=== PATIENT | female | born 1960 | race Caucasian/White ===

== ENCOUNTER 2020-03-30 13:03 | Outpatient (CLI) | payer OTHER ==
--- NOTE | 2020-03-30 14:02 | BD ---
DEXA BONE DENSITOMETRY: (Dual energy x-ray absorptiometry) DATE: 03/30/2020 HISTORY: 59-year old white female for age-related, post-menopausal, osteoporosis screening. Weight: 120 lbs Height: 64 in. Age of menopause: 49 COMPARISON: None available. FINDINGS: The bone mineral density (BMD) is given in grams per square centimeter (g/cm2): LUMBAR SPINE: BMD (g/cm^2) T score Z score L1: 1.057 0.6 1.7 L2: 1.091 0.6 1.8 L3: 1.064 -0.2 1.1 L4: 1.032 -0.3 1.0 Total: 1.060 0.1 1.3 HIP: BMD (g/cm^2) T score Z score Femoral neck: 0.710 -1.3 -0.1 Total: 0.948 0.1 0.9 FRAX WHO fracture risk assessment tool: 10 year fracture risk* Major osteoporotic fracture: 6.0 % Hip fracture: 0.4 % Reported risk factors: US (), neck BMD = 0.710 (g/cm^2), BMI = 20.6. *Fracture probability is calculated for an untreated patient. Fracture probability may be lower if th e patient has received treatment. IMPRESSION: 1.) The mean bone mineral density of the lumbar spine is normal. Fracture risk is not increased. 2) The bone mineral density of the femoral neck is osteopenic. Fracture risk is increased.
--- NOTE | 2020-03-30 14:06 | MMO ---
Bilateral MAMMO Bilat Screen [facility]LENE. CLINICAL HISTORY: Patient is 59 years old and is seen for screening. The patient has the following family history of breast cancer: mother, at age 70 and maternal grandmother, at age 80. The patient has no personal history of cancer. VIEWS: The views performed were: bilateral craniocaudal with tomosynthesis; bilateral mediolateral oblique with tomosynthesis; and bilateral exaggerated craniocaudal. FILMS COMPARED: The present examination has been compared to prior imaging studies performed at [facility] on 04/03/2015 and 05/16/2015, and at [facility] on 10/29/2012 and 11/05/2012. This study has been interpreted with the assistance of computer-aided detection. MAMMOGRAM FINDINGS: The breasts are heterogeneously dense, which could obscure a lesion on mammography. Finding 1: There is an area of architectural distortion seen in the upper-outer region of the right breast. Finding 2: There are stable benign appearing calcifications seen in both breasts. Finding 3: There are multiple round masses of varying size with circumscribed margins seen in both breasts. IMPRESSION: FINDING 1: AREA OF ARCHITECTURAL DISTORTION IN THE RIGHT BREAST REQUIRES ADDITIONAL EVALUATION. SPOT COMPRESSION IS RECOMMENDED. AN ULTRASOUND EXAM IS RECOMMENDED IF NEEDED. FINDING 2: STABLE CALCIFICATIONS IN BOTH BREASTS ARE BENIGN. FINDING 3: MASSES IN BOTH BREASTS ARE BENIGN. THE RESULTS OF THIS EXAM WERE SENT TO THE PATIENT. ACR BI-RADS Category 0 - Incomplete: Need additional imaging evaluation. [facility] will notify the patient of the need for additional imaging services. MAMMOGRAPHY NOTE: 1. A negative mammogram report should not delay a biopsy if a dominant of clinically suspicious mass is present. 2. Approximately 10% to 15% of breast cancers are not detected by mammography. 3. Adenosis and dense breasts may obscure an underlying neoplasm. Reported by: JM OKEEFE MD Electonically Signed: [id number]
== END 2020-03-30 13:04 | disposition home or self-care (01) ==
LOC: BICMAMMO 13:03
PROVIDERS: ATTEND Obstetrics & Gynecology
DX: Z12.31 Encounter for screening mammogram for malignant neoplasm of breast (principal); Z13.820 Encounter for screening for osteoporosis; M81.0 Age-related osteoporosis without current pathological fracture; M85.859 Other specified disorders of bone density and structure, unspecified thigh; R92.1 Mammographic calcification found on diagnostic imaging of breast; N63.20 Unspecified lump in the left breast, unspecified quadrant; N63.10 Unspecified lump in the right breast, unspecified quadrant; Z79.890 Hormone replacement therapy
CPT/HCPCS: 77063; 77067; 77080

== ENCOUNTER 2020-04-25 08:57 | Outpatient (CLI) | payer OTHER ==
--- NOTE | 2020-04-25 11:30 | MMO ---
Right Breast MAMMO Unilat Diag DDI RT+ARLENE. CLINICAL HISTORY: Patient is 59 years old and is seen for diagnostic exam. The patient has the following family history of breast cancer: mother, at age 70 and maternal grandmother, at age 80. The patient has no personal history of cancer. VIEWS: The views performed were: right craniocaudal spot compression with tomosynthesis; right mediolateral oblique spot compression with tomosynthesis; and right mediolateral with tomosynthesis. FILMS COMPARED: The present examination has been compared to prior imaging studies performed at [facility] on 04/03/2015, 05/16/2015, 03/30/2020 and 04/25/2020. This study has been interpreted with the assistance of computer-aided detection. MAMMOGRAM FINDINGS: The breast is heterogeneously dense, which could obscure a lesion on mammography. Finding 1: There is a new area of architectural distortion with spiculated margins seen in the anterior region of the right breast at 12 o'clock. Finding 2: There is a new area of architectural distortion with spiculated margins seen in the posterior upper-outer region of the right breast. D/w patient in person on 04/25/2020 D/W Dr. Tse's nurse Daysi Wade LVN over the phone at 11:13 AM on 04/25/2020. IMPRESSION: FINDING 1: NEW AREA OF ARCHITECTURAL DISTORTION IN THE ANTERIOR REGION OF THE RIGHT BREAST AT 12 O'CLOCK IS HIGHLY SUGGESTIVE OF MALIGNANCY. AN ULTRASOUND-GUIDED BREAST BIOPSY IS RECOMMENDED. FINDING 2: NEW AREA OF ARCHITECTURAL DISTORTION IN THE POSTERIOR UPPER-OUTER REGION OF THE RIGHT BREAST IS HIGHLY SUGGESTIVE OF MALIGNANCY. AN ULTRASOUND-GUIDED BREAST BIOPSY IS RECOMMENDED. THE RESULTS OF THIS EXAM WERE SENT TO THE PATIENT. ACR BI-RADS Category 5 - Highly suggestive of malignancy - appropriate action should be taken MAMMOGRAPHY NOTE: 1. A negative mammogram report should not delay a biopsy if a dominant of clinically suspicious mass is present. 2. Approximately 10% to 15% of breast cancers are not detected by mammography. 3. Adenosis and dense breasts may obscure an underlying neoplasm. Reported by: ERIKA CARLOS MD Electonically Signed: [id number]
--- NOTE | 2020-04-25 14:20 | ULT ---
ULTRASOUND RIGHT BREAST LIMITED: 04/25/20 HISTORY: 59-year-old female with two new spiculated lesions in the right breast on recent mammogram. TECHNIQUE: Focused ultrasound of right upper outer quadrant posteriorly, and right anterior upper breast. FINDINGS: Dr. Red discussed the two findings highly suspicious for breast cancer, and recommendation for ultras ound guided biopsy, with the patient immediately after the ultrasound, then by telephone with Dr. Edna cruz's nurse, Daysi Wade LVN, at 11:13 a.m. on 04/25/20. At the 11 o'clock position, 4 cm from the nipple in the posterior upper outer quadrant, there is a hy poechoic, shadowing, taller than wide, moderate seized spiculated mass with architectural distortion. It is difficult to measure because of its very irregular shape and ill-defined margins, but the hypo echoic component is approximately 2 x 1.5 cm. In the anterior upper breast, at the 12 o'clock position, 1 cm from the nipple, there is another spic ulated mass with similar characteristics as the mass described above. Both of these correspond to mammographically suspicious lesions. IMPRESSION: 1. BIRADS 5: Highly Suggestive of Malignancy - Appropriate Action Should Be Taken Requires biopsy or surgical treatment 2. Two spiculated masses with architectural distortion in the right breast, one at the posterior upper outer quadrant at 11 o'clock, and the other in the anterior upper breast at 12 o'clock. 3. Recommend ultrasound guided right breast biopsy x2. POS: OFF
== END 2020-04-25 08:58 | disposition home or self-care (01) ==
LOC: BICMAMMO 08:57
PROVIDERS: ATTEND Obstetrics & Gynecology
DX: N64.89 Other specified disorders of breast (principal)
CPT/HCPCS: G0279

== ENCOUNTER 2020-05-04 14:13 | Outpatient (CLI) | payer OTHER ==
--- NOTE | 2020-05-07 10:16 | MRI ---
MRI OF THE BILATERAL BREASTS WITHOUT AND WITH CONTRAST: COMPARISON: Mammogram and ultrasound 04/25/2020. Mammogram of 03/30/2020 and 02/24/2007. HISTORY: Abnormality seen on mammogram and ultrasound in the upper aspect of the right breast. TECHNIQUE: Multiplanar, multisequence MR images were obtained of the bilateral breasts without and with IV contr ast. Contrast-enhancement curves and 3D MIP reformats were generated on [employer] work station. FINDINGS: There is heterogeneously dense breast parenchyma. Moderate background parenchymal enhancement is see n in both breasts. There are multiple well-circumscribed nonenhancing foci of high T2 signal in both breasts measuring up to 1.7 cm in size which represent cysts. In the upper aspect of the right breast, there is an area of architectural distortion which demonstra ashlee abnormal plateau-type enhancement. This measures 1.5 cm in greatest dimension and corresponds to the mammographic abnormality. This is at approximately the 12 o'clock position. This area was scan mitali slightly earlier and more intense than the background parenchyma in the right breast. Only one a sammi of abnormal enhancement or architectural distortion is seen in the right breast. No suspicious enhancement or abnormal mass is seen in the left breast. No axillary adenopathy is seen. No internal mammary lymph nodes are identified. The visualized anterior liver and osseous structures are unremarkable. IMPRESSION: There is an abnormal area of architectural distortion which demonstrates enhancement of the right baltazar ast. This corresponds to the mammographic abnormality and may have corresponding to the ultrasound a bnormality on 04/25/2020 that could not be reproduced at the time of biopsy. BIRADS category 4 - susp icious abnormality. A biopsy of this area should be performed. If this can be reproduced with ultra sound, then an ultrasound-guided biopsy would be recommended. However, if this lesion cannot be repr oduced with mammography, then either a stereotactic biopsy or MRI-guided biopsy of this area is recom mended.
== END 2020-05-04 14:14 | disposition home or self-care (01) ==
LOC: BICMRI 14:13
PROVIDERS: ATTEND Obstetrics & Gynecology
DX: R92.8 Other abnormal and inconclusive findings on diagnostic imaging of breast (principal)
CPT/HCPCS: A9577; C8908

== ENCOUNTER → 2020-05-14 | Day surgery (SDC) | payer OTHER | LOC: MAMMO 07:19 | PROVIDERS: ATTEND Obstetrics & Gynecology | DX: Z53.9 Procedure and treatment not carried out, unspecified reason (principal) | CPT/HCPCS: 19081 ==

== ENCOUNTER 2020-05-25 09:55 | Outpatient (CLI) | payer OTHER ==
--- NOTE | 2020-05-25 11:10 | MMO ---
FILMS COMPARED: The present examination has been compared to prior imaging studies performed at [facility] on 03/30/2020, 04/25/2020 and 05/04/2020. MAMMOGRAM FINDINGS: The breast is heterogeneously dense, which could obscure a lesion on mammography. There are two new biopsy clips seen in the right breast. These are at the 12 oclock and upper outer aspects of the right breast in the regions of mammographic distortion. IMPRESSION: NEW BIOPSY CLIPS IN THE RIGHT BREAST ARE CONFIRMED UTILIZING POST PROCEDURE MAMMOGRAM. Reported by: CATHIE FAIR MD Electonically Signed: [id number]
--- NOTE | 2020-05-25 11:33 | ULT ---
US Breast Bx US Guide Add History: Right breast masses. Comparison: Breast MRI May 14, 2020. Right breast ultrasound April 25, 2020. Findings: Patient was brought to the ultrasound suite. All questions were answered. Informed consent obtained. Timeout performed. Patient's right breast was prepped and draped in normal sterile fashion. After adequate local anesthe louis with lidocaine, a total of 4 14-gauge cores of the right breast mass 12:00 1 cm from the nipple was performed. "R" clip was placed. Next a total of 4 cores from the 11:00 mass 4 centimeter from the nipple was performed. "S" clip was placed. Patient tolerated procedure well without complication. Post procedure mammogram demonstrated good position of the clips in both foci of of asymmetry which w ere sampled. Impression: Technically successful ultrasound-guided biopsy x2 with satisfactory post clip location i ndicating adequate tissue sampling in the correct locations.
== END 2020-05-25 09:56 | disposition home or self-care (01) ==
LOC: BICULT 09:55
PROVIDERS: ATTEND Surgery
DX: C50.811 Malignant neoplasm of overlapping sites of right female breast (principal)
CPT/HCPCS: 19083; 19084; 88305; 88341; 88342

== ENCOUNTER 2020-06-22 17:39 | Outpatient (CLI) | payer OTHER ==
[2020-06-22 18:40] LABS: #Basophils 0.1 10x3/uL (0.0-0.2); #Eosinphils 0.1 10x3/uL (0.0-0.5); #Monocytes 0.6 10x3/uL (0.0-1.1); #Neutrophils 3.6 10x3/uL (1.5-8.4); %Basophils 1.3 % (0.0-2.0); %Eosinophils 0.7 % (0.0-6.0); %Lymphocytes 36.2 % (18.0-47.0); %Monocytes 8.5 % (0.0-10.0); %Neutrophils 53.2 % (40.0-75.0); Mean Corpuscular Volume 88.2 fl (80.0-100.0); Mean Platelet Volume 12.1 fl (7.4-10.4); Platelet Count 246 10x3/uL (130-400); Red Blood Cell (RBC) Count 4.33 10x6/uL (3.90-5.20); White Blood Cell (WBC) Count 6.8 10x3/uL (4.5-11.0)
[2020-06-22 18:56] LABS: Anion Gap 16 mmol/L (10-20); BUN (Urea Nitrogen) 17 mg/dL (9.8-20.1); Calc. Creatinine Clearance 0 mL/min (70-130); Calcium 9.6 mg/dL (7.8-10.44); Carbon Dioxide 27 mmol/L (22-29); Chloride 98 mmol/L (98-107); Estimated GFR-MDRD 71; Glucose 74 mg/dL (70-105); Potassium 3.9 mmol/L (3.5-5.1); Sodium 137 mmol/L (136-145)
[2020-06-23 16:11] LABS: SARS-CoV-2 MS2 Positive; SARS-CoV-2 N Gene Negative; SARS-CoV-2 S Gene Negative; SARS-CoV-2 by NAA Not Detected (NotDetected); SARS-CoV-2 orf1ab Negative
== END 2020-06-22 17:40 | disposition home or self-care (01) ==
LOC: LABBT 17:39
PROVIDERS: ATTEND Surgery
DX: Z01.812 Encounter for preprocedural laboratory examination (principal); Z20.828 Contact with and (suspected) exposure to other viral communicable diseases; D05.90 Unspecified type of carcinoma in situ of unspecified breast
CPT/HCPCS: 80048; 85025; 87635; U0003

== ENCOUNTER 2020-06-27 11:01 | Observation (INO) | payer OTHER ==
[~2020-06-27 11:01] MED LIST: Dexamethasone 20 MG/5 ML VIAL ONE; Ketorolac Tromethamine 30 MG/ML VIAL ONE; Lidocaine 1% PF 5 ML VIAL ONE; Ondansetron PF 4 MG/2 ML Vial ONE; PHENYLEPHRINE-NS 100 MCG/ML 10 ML SYRINGE ONE; PROPOFOL 200 MG/20 ML VIAL ONE; ePHEDrine 50 MG/ML VIAL ONE
[2020-06-27] MEDS ORDERED: Levofloxacin 500 mg/D5W 100 ml Premix Bag ONE (11:56)
[2020-06-27] MEDS ORDERED: Fentanyl 100 MCG/2 ML VIAL ONE ×2 (12:31→15:38)
[2020-06-27] MEDS ORDERED: Ondansetron HCl/PF 4 MG/2 ML Vial IVP PRN (15:22)
[2020-06-27] MEDS ORDERED: Promethazine HCl 25 MG/ML VIAL SLOW IVP PRN (15:22)
[2020-06-27] MEDS ORDERED: Promethazine HCl 25 MG/ML VIAL IM PRN ×2 (15:22→17:00)
[2020-06-27] MEDS ORDERED: D5 1/2 NS w/20 mEq KCL 1,000 ML ONE (15:58)
[2020-06-27] MEDS ORDERED: Dextrose 5% in Water 1,000 ML IV PRN (17:00)
[2020-06-27] MEDS ORDERED: hydrALAZINE 20 MG/ML VIAL SLOW IVP PRN (17:00)
[2020-06-27] MEDS ORDERED: HYDROcodone/Acetaminophen 7.5/325 mg Tablet PO PRN ×2 (17:00)
[2020-06-27] MEDS ORDERED: Dextrose 50% Abboject 50 ML SYRINGE SLOW IVP PRN (17:00)
[2020-06-27] MEDS ORDERED: Morphine 2 MG/ML VIAL SLOW IVP PRN (17:00)
[2020-06-27] MEDS ORDERED: Ondansetron PF 4 MG/2 ML Vial IVP PRN (17:00)
[2020-06-27] MEDS ORDERED: Morphine 4 MG/ML VIAL SLOW IVP PRN (17:00)
[2020-06-27] MEDS: D5 1/2 NS w/20 mEq KCL 1,000 ML IV SCH ×2 (17:08→22:20)
[2020-06-27] MEDS: Famotidine 20 MG TAB PO SCH (20:01)
[2020-06-27] MEDS: Lactinex Tablet PO SCH (20:01)
[2020-06-27] MEDS ORDERED: LATANOPROSTENE BUNOD FS SCH (21:00)
[2020-06-27] MEDS ORDERED: Montelukast Sodium 10 mg Tablet PO SCH (21:00)
--- NOTE | 2020-06-27 23:02 | OP ---
DATE OF PROCEDURE: 06/27/2020 PREOPERATIVE DIAGNOSIS: Right breast cancer (DCIS, low grade, 2 areas). POSTOPERATIVE DIAGNOSIS: Right breast cancer (DCIS, low grade, 2 areas). PROCEDURE PERFORMED: Bilateral simple mastectomy (nipple and skin sparing). ANESTHESIA: General. ESTIMATED BLOOD LOSS: Minimal. COMPLICATIONS: None. BRIEF HISTORY: The patient is a 59-year-old female with a history of abnormality in the right breast x2. She underwent biopsies, both revealed DCIS that was low-grade. She was offered lumpectomy in that right breast, however, given her small amount to moderate-sized breast, this was thought to likely result severe deformity. She thus elected for mastectomy. TECHNIQUE: The patient was taken to the operating room and laid supine on the operating room table. After general anesthetic, the bilateral chest, neck, axilla were all prepped and draped in a sterile fashion. Inframammary incision was made. Bilateral flaps were raised posterior to the breast, anterior to pectoralis muscle all the way from inframammary crease to sternum medially on both sides to latissimus dorsi laterally on both sides and towards the clavicle superiorly. The superficial flaps were then raised dissecting breast tissue down from the subcutaneous fat along the same landmarks. The bilateral breasts were thus removed. Each side, a blue Prolene suture was placed at the nipple and a black silk suture was used to marked 2 short superior, 1 long lateral. Specimens were sent separate to [facility] for final diagnosis. Meticulous hemostasis was obtained in the mastectomy cavity bilateral. They were irrigated using sterile solution until returns were clear. 19 round drain brought out through separate stab incisions laterally and left in the mastectomy cavities. This was sewn in using silk suture. Subcutaneous tissues were closed using 3-0 Vicryl. Skin was closed using running 4-0 Monocryl and Dermabond. Tegaderms were used over the bilateral chest wall incisions and breast skin. The patient was then wrapped using 6-inch Efrain wrap. She was sent to Recovery in stable condition. All instrument counts, needle counts, lap counts were correct. Job ID: [id number]
[2020-06-28] MEDS: D5 1/2 NS w/20 mEq KCL 1,000 ML IV SCH (06:48)
--- NOTE | 2020-06-28 08:31 | DIS ---
DATE OF ADMISSION: 06/27/2020 DATE OF DISCHARGE: 06/28/2020 ADMITTING DIAGNOSIS: Ductal carcinoma in situ, right breast x2. DISCHARGE DIAGNOSIS: Ductal carcinoma in situ, right breast x2. PROCEDURE: Bilateral simple mastectomy. SURGEON: Barber Jeffries MD COMPLICATIONS: Without complication. CONDITION ON DISCHARGE: Improved. HOSPITAL COURSE: On postop day 1, the patient's pain is well controlled. She has been instructed on drain care. She is wrapped in an Efrain wrap. She is going to be discharged home. She will follow up with me on Thursday for drain removal. Prescriptions for hydrocodone and Zofran sent to her pharmacy. She will follow up on Thursday. Job ID: [id number]
[2020-06-28] MEDS: Lactinex Tablet PO SCH (08:38)
[2020-06-28] MEDS: Famotidine 20 MG TAB PO SCH (08:38)
[2020-06-28 08:50] VITALS: TEMP 98.5
[2020-06-28] MEDS ORDERED: FLU VACC QS2020-21(6MOS UP)/PF 60 MCG/0.5 ML SYRINGE IM ONE (09:00)
[2020-06-28 11:53] VITALS: BP 98/60
== END 2020-06-28 11:54 | disposition home or self-care (01) ==
LOC: SDC 11:01 → SJJU 15:22
PROVIDERS: ADMIT Surgery; ATTEND Surgery
PROC: 0HBV0ZZ Excision of Bilateral Breast, Open Approach (ICD-10-PCS; principal; 2020-06-27)
DX: D05.11 Intraductal carcinoma in situ of right breast (principal); N60.21 Fibroadenosis of right breast; N60.22 Fibroadenosis of left breast; N60.92 Unspecified benign mammary dysplasia of left breast; D24.2 Benign neoplasm of left breast; Z79.899 Other long term (current) drug therapy; Z88.0 Allergy status to penicillin; Z91.018 Allergy to other foods
CPT/HCPCS: 88307; G0378; J1100; J1885; J1956; J2405; J2704; J3010; J3480; J3490

== ENCOUNTER 2020-08-22 06:36 | Outpatient (CLI) | payer OTHER ==
[2020-08-23 03:24] LABS: SARS-CoV-2 PCR by NAA Not Detected (NotDetected)
== END 2020-08-22 06:37 | disposition home or self-care (01) ==
LOC: LABBT 06:36
PROVIDERS: ATTEND Plastic Surgery
DX: Z01.812 Encounter for preprocedural laboratory examination (principal); Z20.822 Contact with and (suspected) exposure to COVID-19; C50.911 Malignant neoplasm of unspecified site of right female breast
CPT/HCPCS: 87635; U0003; U0005

== ENCOUNTER 2020-08-27 05:59 | Day surgery (SDC) | payer OTHER ==
[2020-08-23 11:18] VITALS: BMI 20.5
[2020-08-27] MEDS ORDERED: Sodium Chloride 0.9% 20 ML ONE (06:34)
[2020-08-27] MEDS ORDERED: Gentamicin 80 MG/2 ML VIAL ONE (06:34)
[2020-08-27] MEDS ORDERED: Bupivacaine 0.25% HCL 30 ML VIAL ONE (06:34)
[2020-08-27] MEDS ORDERED: EPINEPHrine 1 MG/ML AMP ONE (06:34)
[2020-08-27] MEDS ORDERED: Levofloxacin 500 mg/D5W 100 ml Premix Bag ONE (06:37)
[2020-08-27] MEDS ORDERED: Heparin 5,000 UNITS/ML VIAL ONE (06:38)
[2020-08-27] MEDS ORDERED: Clindamycin/D5W 900 mg/50 ml Premix Bag ONE (06:38)
[2020-08-27] MEDS ORDERED: Lidocaine 2% Jelly 5 ML TUBE ONE (06:38)
[2020-08-27] MEDS ORDERED: Fentanyl 100 MCG/2 ML VIAL ONE (06:38)
[2020-08-27] MEDS ORDERED: Promethazine HCl 25 MG/ML VIAL ONE (07:14)
[2020-08-27] MEDS ORDERED: PROPOFOL 200 MG/20 ML VIAL ONE (09:21)
[2020-08-27] MEDS ORDERED: Ondansetron PF 4 MG/2 ML Vial ONE (09:21)
[2020-08-27] MEDS ORDERED: ePHEDrine 50 MG/ML VIAL ONE (09:21)
[2020-08-27] MEDS ORDERED: Dexamethasone 20 MG/5 ML VIAL ONE (09:21)
[2020-08-27] MEDS ORDERED: PHENYLEPHRINE-NS 100 MCG/ML 10 ML SYRINGE ONE (09:21)
[2020-08-27] MEDS ORDERED: Lidocaine 1% PF 5 ML VIAL ONE (09:21)
[2020-08-27] MEDS ORDERED: Ketorolac Tromethamine 30 MG/ML VIAL ONE (09:21)
== END 2020-08-27 14:20 | disposition home or self-care (01) ==
LOC: SDC 05:59
PROVIDERS: ATTEND Plastic Surgery
PROC: 0HHV0NZ Insertion of Tissue Expander into Bilateral Breast, Open Approach (ICD-10-PCS; principal; 2020-08-27)
DX: C50.919 Malignant neoplasm of unspecified site of unspecified female breast (principal); J44.9 Chronic obstructive pulmonary disease, unspecified; Z79.82 Long term (current) use of aspirin; Z79.899 Other long term (current) drug therapy; Z88.0 Allergy status to penicillin; Z91.018 Allergy to other foods
CPT/HCPCS: C1713; J0171; J1100; J1580; J1644; J1885; J1956; J2405; J2550; J2704; J3010; J3370; J3490; S0020

== ENCOUNTER 2020-09-06 11:46 | Day surgery (SDC) | payer OTHER ==
[2020-09-06] MEDS ORDERED: Fentanyl 100 MCG/2 ML VIAL ONE ×4 (11:59→15:21)
[2020-09-06] MEDS ORDERED: Ondansetron PF 4 MG/2 ML Vial ONE (12:00)
--- NOTE | 2020-09-06 12:28 | RAD ---
RADIOGRAPH CHEST 1 VIEW: DATE: 09/06/2020 HISTORY: 59-year-old female status post syncope. Concern for aspiration. FINDINGS: There are no airspace densities, pulmonary edema, pneumothorax, or cardiomegaly. The lateral costophr enic angles are sharp. IMPRESSION: No acute cardiopulmonary findings.
[2020-09-06 12:44] LABS: #Monocytes 1.1 thou/uL (0.11-0.59); %Basophils 0.3 % (0.0-1.0); %Eosinophils 0.1 % (0.0-10.0); %Monocytes 7.8 % (0.0-10.0); %Neutrophils 84.9 % (42.0-75.0); Hemoglobin 9.9 g/dL (12.0-16.0); Mean Corpuscular HGB CONC 34.3 g/dL (32.0-36.0); Mean Corpuscular Hemoglobin 31.5 pg (27.0-31.0); Mean Platelet Volume 8.2 fL (7.4-10.4); Platelet Count 212 thou/uL (130-400); RBC Distribution Width 11.4 % (11.5-14.5); Red Blood Cell (RBC) Count 3.13 mill/uL (4.20-5.40); White Blood Cell (WBC) Count 14.1 thou/uL (4.8-10.8)
[2020-09-06 12:51] LABS: INR-International Normal Ratio 0.9; PTT 30.4 sec (22.9-36.1); Prothrombin Time 11.8 sec (12.0-14.7)
[2020-09-06 13:05] LABS: ALT (SGPT) 61 U/L (8-55); AST (SGOT) 38 U/L (5-34); Albumin 3.8 g/dL (3.5-5.0); Alkaline Phosphatase 72 U/L (40-110); Anion Gap 16 mmol/L (10-20); BUN (Urea Nitrogen) 10 mg/dL (9.8-20.1); Bilirubin, Total 0.5 mg/dL (0.2-1.2); CK (CPK) 50 U/L (29-168); Calc. Creatinine Clearance 0 mL/min (70-130); Calcium 9.1 mg/dL (7.8-10.44); Carbon Dioxide 22 mmol/L (22-29); Chloride 101 mmol/L (98-107); Globulin 2.6 g/dL (2.4-3.5); Glucose 106 mg/dL (70-105); Potassium 3.8 mmol/L (3.5-5.1); Protein, Total 6.4 g/dL (6.0-8.3); Sodium 135 mmol/L (136-145)
[2020-09-06] MEDS ORDERED: Famotidine/PF 20 mg/2ml Vial ONE ×2 (13:33→14:21)
[2020-09-06] MEDS ORDERED: SUGAMMADEX SODIUM 200 MG/2 ML VIAL ONE (13:33)
[2020-09-06] MEDS ORDERED: Gentamicin 80 MG/2 ML VIAL ONE (13:41)
[2020-09-06] MEDS ORDERED: Sodium Chloride 0.9% 10 ML ONE (13:41)
[2020-09-06] MEDS ORDERED: Sodium Chloride 0.9% 0 ML ONE (13:52)
[2020-09-06] MEDS ORDERED: Scopolamine 1.5 mg/72 hour Patch ONE (14:21)
[2020-09-06] MEDS ORDERED: Acetaminophen 500 MG TAB ONE (14:25)
[2020-09-06] MEDS ORDERED: Levofloxacin 500 mg/D5W 100 ml Premix Bag ONE (15:07)
[2020-09-06] MEDS ORDERED: Clindamycin/D5W 900 mg/50 ml Premix Bag ONE (15:07)
[2020-09-06] MEDS ORDERED: Propofol 1,000 MG/100 ML VIAL IV ONE (15:21)
[2020-09-06] MEDS ORDERED: Dexmedetomidine 200 MCG/2 ML VIAL ONE (15:21)
[2020-09-06] MEDS ORDERED: EPINEPHrine 1 MG/ML AMP ONE (15:28)
[2020-09-06] MEDS ORDERED: Bupivacaine 0.25% HCL 30 ML VIAL ONE ×2 (15:28→15:29)
[2020-09-06] MEDS ORDERED: Tranexamic Acid 1,000 MG/10 ML VIAL ONE (16:08)
[2020-09-06] MEDS ORDERED: Propofol 500 MG/50 ML VIAL ONE (16:38)
[2020-09-06] MEDS ORDERED: Morphine 2 MG/ML VIAL SLOW IVP PRN (17:36)
[2020-09-06] MEDS ORDERED: Promethazine HCl 25 MG/ML VIAL IM PRN (17:39)
[2020-09-06] MEDS ORDERED: Promethazine HCl 25 MG/ML VIAL SLOW IVP PRN (17:39)
[2020-09-06] MEDS ORDERED: Ondansetron HCl/PF 4 MG/2 ML Vial IVP PRN (17:39)
[2020-09-06] MEDS ORDERED: HYDROmorphone 2 MG/ML VIAL SLOW IVP PRN (17:39)
[2020-09-06] MEDS ORDERED: PACU-Morphine 4MG/ML VIAL SLOW IVP PRN (17:39)
[2020-09-06] MEDS ORDERED: Morphine 4 MG/ML VIAL SLOW IVP PRN (17:41)
[2020-09-06] MEDS ORDERED: Calcium Carbonate 500 MG ChewTAB PO PRN ×2 (17:45)
[2020-09-06] MEDS ORDERED: cloNIDine 0.1 MG TAB PO PRN (17:45)
[2020-09-06] MEDS ORDERED: Ondansetron PF 4 MG/2 ML Vial IVP PRN (17:45)
[2020-09-06] MEDS ORDERED: Simethicone Chewable 80 MG TAB PO PRN (17:45)
[2020-09-06] MEDS ORDERED: Promethazine HCl 12.5 MG in Sodium Chloride 0.9% 50 ML IVPB PRN (17:45)
[2020-09-06] MEDS ORDERED: Acetaminophen 325 MG TAB PO PRN (17:45)
[2020-09-06] MEDS ORDERED: diphenhydrAMINE 25 MG CAP PO PRN ×2 (17:45)
[2020-09-06] MEDS ORDERED: GUAIFENESIN DM SF 5 ML UDCUP PO PRN (17:45)
[2020-09-06] MEDS ORDERED: Labetalol HCl 100 MG/20 ML VIAL SLOW IVP PRN (17:45)
[2020-09-06] MEDS ORDERED: Cepastat Lozenges 1 LOZ PO PRN (17:45)
[2020-09-06] MEDS ORDERED: Benzonatate 100 MG CAP PO PRN ×2 (17:45)
[2020-09-06] MEDS ORDERED: HYDROcodone/Acetaminophen 5/325 mg Tablet PO PRN (17:45)
[2020-09-06] MEDS ORDERED: Zolpidem Tartrate 5 MG TAB PO PRN (17:45)
[2020-09-06] MEDS ORDERED: Metoclopramide HCl 10 MG/2 ML VIAL IVP PRN (17:45)
[2020-09-06] MEDS ORDERED: Milk Of Magnesia 30 ML UDCUP PO PRN (17:45)
[2020-09-06] MEDS: CeleCOXIB 100 MG CAP PO SCH (21:48)
[2020-09-06] MEDS: HYDROcodone/Acetaminophen 5/325 mg Tablet PO PRN (21:48)
[2020-09-06] MEDS: 1/2 NS w/KCL 20 mEq 1,000 ML IV SCH (21:49)
[2020-09-06] MEDS: Clindamycin/D5W 600 MG in Premix Bag 1 BAG IVPB SCH (21:49)
[2020-09-07] MEDS: HYDROcodone/Acetaminophen 5/325 mg Tablet PO PRN (02:25)
[2020-09-07] MEDS: 1/2 NS w/KCL 20 mEq 1,000 ML IV SCH (04:37)
[2020-09-07 05:28] LABS: #Lymphocytes 0.7 thou/uL (1.20-3.40); #Monocytes 0.9 thou/uL (0.11-0.59); #Neutrophils 8.5 thou/uL (1.40-6.50); %Basophils 0.1 % (0.0-1.0); %Eosinophils 0.1 % (0.0-10.0); %Lymphocytes 6.6 % (21.0-51.0); %Monocytes 8.7 % (0.0-10.0); %Neutrophils 84.6 % (42.0-75.0); Hemoglobin 8.7 g/dL (12.0-16.0); Mean Corpuscular HGB CONC 34.5 g/dL (32.0-36.0); Mean Corpuscular Volume 92.5 fL (78.0-98.0); Mean Platelet Volume 8.5 fL (7.4-10.4); Platelet Count 177 thou/uL (130-400); RBC Distribution Width 11.6 % (11.5-14.5); Red Blood Cell (RBC) Count 2.72 mill/uL (4.20-5.40); White Blood Cell (WBC) Count 10.1 thou/uL (4.8-10.8)
[2020-09-07 05:32] LABS: ALT (SGPT) 47 U/L (8-55); AST (SGOT) 27 U/L (5-34); Albumin 3.5 g/dL (3.5-5.0); Alkaline Phosphatase 60 U/L (40-110); Anion Gap 12 mmol/L (10-20); BUN (Urea Nitrogen) 9 mg/dL (9.8-20.1); Bilirubin, Total 0.4 mg/dL (0.2-1.2); Calc. Creatinine Clearance 62 mL/min (70-130); Calcium 9.2 mg/dL (7.8-10.44); Carbon Dioxide 25 mmol/L (22-29); Chloride 105 mmol/L (98-107); Globulin 2.4 g/dL (2.4-3.5); Glucose 133 mg/dL (70-105); Potassium 4.6 mmol/L (3.5-5.1); Protein, Total 5.9 g/dL (6.0-8.3); Sodium 137 mmol/L (136-145)
[2020-09-07] MEDS: Clindamycin/D5W 600 MG in Premix Bag 1 BAG IVPB SCH ×2 (06:31→13:41)
--- NOTE | 2020-09-07 06:44 | OP ---
DATE OF PROCEDURE: 09/06/2020 PREOPERATIVE DIAGNOSIS: Postoperative hematoma, right breast. POSTOPERATIVE DIAGNOSIS: Postoperative hematoma, right breast. PROCEDURE PERFORMED: Evacuation of right breast hematoma. INDICATIONS FOR PROCEDURE: The patient is a 59-year-old breast reconstruction patient who a little over a week ago underwent bilateral tissue biology department chair reconstruction. Her family history was significant for DVT. Therefore, she was started on Lovenox postoperatively. Approximately 2 days ago, she noticed some increasing swelling and pain on the right side. This got progressively worse. She was evaluated and thought to need surgery. Earlier today, she came to my office for pre-hospital COVID screening. While in the office, she experienced a fainting spell. For concern that this could be hemodynamic compromise related to the hematoma, the patient was transferred by EMS to the hospital. Her hemoglobin was 9.9 and the patient was stable thereafter continuously after the fainting episode. DESCRIPTION OF PROCEDURE: Following induction of adequate anesthesia, the patient was prepped and draped in usual sterile fashion in supine position. The existing inframammary crease incision was opened. Cultures were taken. The tissue biology department chair was removed. One arterial bleeder was noted on the chest wall. The remainder of the pocket was copiously irrigated with pulsatile irrigation followed by antibiotics irrigation and dilute Betadine and antibiotic solution. Clips were used superiorly, medially around the second intercostal data warehouse developer for some intramuscular bleeding. After hemostasis was verified, the biology department chair was replaced and secured with its inferior and lateral tabs using 2-0 Prolene suture. Antibiotic beads were placed into the pocket. The incision was closed with 3-0 PDS suture and 3-0 Monocryl suture. The wound was dressed with Dermabond. The patient tolerated the procedure well. Job ID: [id number]
[2020-09-07] MEDS: CeleCOXIB 100 MG CAP PO SCH (08:02)
[2020-09-07 11:48] VITALS: BP 120/64; TEMP 97.7
[2020-09-07] MEDS ORDERED: Calcium Carbonate 500 MG TAB PO SCH (21:00)
[2020-09-07] MEDS ORDERED: Latanoprostene Bunod [Vyzulta] 5 ML Drops DT SCH (21:00)
[2020-09-07] MEDS ORDERED: Montelukast Sodium 10 mg Tablet PO SCH (21:00)
[2020-09-08] MEDS ORDERED: Zinc Sulfate 220 MG CAP PO SCH (09:00)
[2020-09-08] MEDS ORDERED: Multivitamin W/ Minerals 1 TAB PO SCH (09:00)
[2020-09-08] MEDS ORDERED: ECHINACEA 500 MG PO SCH (09:00)
[2020-09-08] MEDS ORDERED: Ascorbic Acid 500 mg Chewable Tablet PO SCH (09:00)
--- NOTE | 2020-09-15 17:05 | EKG ---
Test Reason : Blood Pressure : / mmHG Vent. Rate : 096 BPM Atrial Rate : 096 BPM P-R Int : 136 ms QRS Dur : 080 ms QT Int : 368 ms P-R-T Axes : 078 078 079 degrees QTc Int : 464 ms Normal sinus rhythm Normal ECG Confirmed by YURY SARAVIA DO ([id number]), editor dictionary MIKE MCCLELLAND ([id number]) on 09/15/2020 5:05:08 PM Referred By: Confirmed By:YURY SARAVIA DO
== END 2020-09-07 16:06 | disposition home or self-care (01) ==
LOC: ERS 11:46 → SDC 13:36 → SJJU 13:36 → SDC 09-07 16:06
PROVIDERS: ATTEND Plastic Surgery
PROC: 0J960ZZ Drainage of Chest Subcutaneous Tissue and Fascia, Open Approach (ICD-10-PCS; principal; 2020-09-06)
DX: L76.32 Postprocedural hematoma of skin and subcutaneous tissue following other procedure (principal); Z88.0 Allergy status to penicillin; Z91.018 Allergy to other foods
CPT/HCPCS: 36415; 71045; 80053; 82550; 84484; 85025; 85610; 85730; 87070; 87205; 93005; 96374; 96375; C1713; J0171; J1100; J1580; J1885; J1956; J2405; J2704; J3010; J3370; J3480; J3490; S0020; S0028

== ENCOUNTER 2020-12-26 12:14 | Outpatient (CLI) | payer OTHER ==
[2020-12-26 15:26] LABS: BHCG - Serum Negative (NEGATIVE); Pregs Control Background? CLEAR/WHITE (CLR/WHITE); Pregs Control Bar Appear? YES (CONTROL BAR)
[2020-12-27 11:48] LABS: SARS-CoV-2 PCR by NAA Not Detected (NotDetected)
== END 2020-12-26 12:15 | disposition home or self-care (01) ==
LOC: LABBT 12:14
PROVIDERS: ATTEND Plastic Surgery
DX: Z01.818 Encounter for other preprocedural examination (principal); C50.911 Malignant neoplasm of unspecified site of right female breast
CPT/HCPCS: 84703; 93005; 93010; U0003; U0005

== ENCOUNTER 2020-12-31 09:55 | Day surgery (SDC) | payer OTHER ==
[2020-12-31] MEDS ORDERED: EPINEPHrine 1 MG/10 ML Abboject SYRINGE ONE (10:33)
[2020-12-31] MEDS ORDERED: EPINEPHrine 1 MG/ML AMP ONE (10:33)
[2020-12-31] MEDS ORDERED: Bupivacaine 0.25% HCL 30 ML VIAL ONE (10:33)
[2020-12-31] MEDS ORDERED: Gentamicin 80 MG/2 ML VIAL ONE (10:33)
[2020-12-31] MEDS ORDERED: Lidocaine 1% (PF) 30 ML VIAL ONE (10:34)
[2020-12-31] MEDS ORDERED: Heparin 5,000 UNITS/ML VIAL ONE (10:35)
[2020-12-31] MEDS ORDERED: Clindamycin/D5W 900 mg/50 ml Premix Bag ONE (10:53)
[2020-12-31] MEDS ORDERED: Fentanyl 100 MCG/2 ML VIAL ONE (11:10)
[2020-12-31] MEDS ORDERED: Famotidine/PF 20 mg/2ml Vial ONE (11:11)
[2020-12-31] MEDS ORDERED: PHENYLEPHRINE-NS 100 MCG/ML 10 ML SYRINGE ONE ×2 (11:11→11:21)
[2020-12-31] MEDS ORDERED: Dexmedetomidine 200 MCG/2 ML VIAL ONE (11:20)
[2020-12-31] MEDS ORDERED: Propofol 1,000 MG/100 ML VIAL IV ONE (11:20)
[2020-12-31] MEDS ORDERED: Naloxone HCl 0.4 mg/ml Vial ONE (11:21)
[2020-12-31] MEDS ORDERED: Dexamethasone 20 MG/5 ML VIAL ONE (11:21)
[2020-12-31] MEDS ORDERED: Ondansetron PF 4 MG/2 ML Vial ONE (11:21)
[2020-12-31] MEDS ORDERED: Rocuronium Bromide 10 MG/ML (10ML VIAL) ONE (11:21)
[2020-12-31] MEDS ORDERED: Lidocaine 1% PF 5 ML VIAL ONE (11:21)
[2020-12-31] MEDS ORDERED: Metoclopramide HCl 10 MG/2 ML VIAL ONE (11:21)
[2020-12-31] MEDS ORDERED: PROPOFOL 200 MG/20 ML VIAL ONE (11:21)
[2020-12-31] MEDS ORDERED: Levofloxacin 500 mg/D5W 100 ml Premix Bag ONE (11:34)
[2020-12-31] MEDS ORDERED: Promethazine HCl 25 MG/ML VIAL ONE (15:53)
== END 2020-12-31 18:50 | disposition home or self-care (01) ==
LOC: SDC 09:55
PROVIDERS: ATTEND Plastic Surgery
PROC: 0HHV0NZ Insertion of Tissue Expander into Bilateral Breast, Open Approach (ICD-10-PCS; principal; 2020-12-31)
PROC: 0HPU0NZ Removal of Tissue Expander from Left Breast, Open Approach (ICD-10-PCS; principal; 2020-12-31)
PROC: 0HPT0NZ Removal of Tissue Expander from Right Breast, Open Approach (ICD-10-PCS; principal; 2020-12-31)
PROC: 0HNV0ZZ Release Bilateral Breast, Open Approach (ICD-10-PCS; principal; 2020-12-31)
PROC: 0HRV37Z Replacement of Bilateral Breast with Autologous Tissue Substitute, Percutaneous Approach (ICD-10-PCS; principal; 2020-12-31)
DX: C50.911 Malignant neoplasm of unspecified site of right female breast (principal); C50.912 Malignant neoplasm of unspecified site of left female breast; Z79.899 Other long term (current) drug therapy; Z88.0 Allergy status to penicillin; Z88.8 Allergy status to other drugs, medicaments and biological substances
CPT/HCPCS: C1789; J0171; J0690; J1100; J1580; J1644; J1956; J2001; J2310; J2405; J2550; J2704; J2765; J3010; J3370; J3490; L8600; S0020; S0028

== ENCOUNTER 2021-07-09 09:20 | Day surgery (SDC) | payer OTHER ==
[2021-07-08 14:51] VITALS: BMI 22.3
[~2021-07-09 09:20] MED LIST changes: -Dexamethasone 20 MG/5 ML VIAL ONE; +EPINEPHrine 0.3 MG in Ophthalmic Irrigation Solution 500 ML IRR SCH; +Fentanyl 100 MCG/2 ML VIAL ONE; -Ketorolac Tromethamine 30 MG/ML VIAL ONE; -Lidocaine 1% PF 5 ML VIAL ONE; +Midazolam HCl 2 mg/2 ml Vial ONE; -Ondansetron PF 4 MG/2 ML Vial ONE; -PHENYLEPHRINE-NS 100 MCG/ML 10 ML SYRINGE ONE; -PROPOFOL 200 MG/20 ML VIAL ONE; -ePHEDrine 50 MG/ML VIAL ONE
[2021-07-09] MEDS ORDERED: Phenylephrine 2.5% Ophth Soln 5 ML BOT ONE (09:45)
[2021-07-09] MEDS ORDERED: Cyclopentolate 1% Opth Drop 2 ML BOT ONE (09:45)
[2021-07-09] MEDS ORDERED: Bupivacaine PF 0.75% SDV 10 ML ONE (11:19)
[2021-07-09] MEDS ORDERED: Lidocaine 4% PF 5 ML AMP ONE (11:19)
[2021-07-09] MEDS ORDERED: PROPOFOL 200 MG/20 ML VIAL ONE (11:19)
[2021-07-09] MEDS ORDERED: Indocyanine Green 25 MG/10 ML VIAL ONE (11:19)
[2021-07-09] MEDS ORDERED: Maxitrol 0.1% Opth Oint 3.5 GM TUBE ONE (11:19)
[2021-07-09] MEDS ORDERED: Triamcinolone 40 MG/ML VIAL ONE (11:19)
== END 2021-07-09 12:55 | disposition home or self-care (01) ==
LOC: SDC 09:20
PROVIDERS: ATTEND Ophthalmology Retina Specialist
PROC: 08T43ZZ Resection of Right Vitreous, Percutaneous Approach (ICD-10-PCS; principal; 2021-07-09)
PROC: 08NE3ZZ Release Right Retina, Percutaneous Approach (ICD-10-PCS; principal; 2021-07-09)
DX: H35.371 Puckering of macula, right eye (principal); Z79.82 Long term (current) use of aspirin; Z79.899 Other long term (current) drug therapy; Z88.0 Allergy status to penicillin; Z91.018 Allergy to other foods
CPT/HCPCS: J0171; J2250; J2704; J3010; J3301; J3490